=== PATIENT | female | born 1955 | race Caucasian/White ===

== ENCOUNTER → 2017-02-16 | Outpatient (CLI) | payer OTHER ==
--- NOTE | 2017-02-17 08:48 | KCIC ---
PROCEDURE MR of the left knee HISTORY Left knee pain. Tenderness and swelling since January 21. COMPARISON None TECHNIQUE Routine multiplanar sequences are obtained. FINDINGS No evidence of medial meniscal tear. Mild blunting of the free margin of the lateral meniscus, with some internal signal, compatible with a tear. The anterior and the posterior cruciate ligaments are intact. Medial collateral ligament intact Iliotibial band, fibular collateral ligament, biceps femoris tendon and popliteus tendon are intact. Extensor mechanism is intact. Moderate chondromalacia of the patella with multiple fissures. At least mild chondromalacia at the medial and lateral compartments. Acute bone marrow edema at the lateral aspect of the lateral femoral condyle may represent a bone marrow contusion. No aggressive bone destruction. Soft tissue edema within the infrapatellar fat and along the anterior knee. There is a shelf-like medial patellar plica which covers the lateral femoral trochlea. IMPRESSION 1. Lateral meniscal tear. 2. Primary osteoarthritis. 3. Mild bone marrow edema or contusion at the lateral femoral condyle. 4. Prominent medial patellar plica. 5. Soft tissue inflammation or contusion along the anterior knee and in the infrapatellar fat. Electronically signed by: Saw Stanley MD (Feb 17, 2017 08:47:05)
== END | disposition home or self-care (01) ==
LOC: KCIC MRI 16:27
PROVIDERS: ATTEND Physician Assistant Surgical
DX: M17.12 Unilateral primary osteoarthritis, left knee (principal)
CPT/HCPCS: 73721

== ENCOUNTER → 2019-04-01 | Outpatient (CLI) | payer OTHER ==
--- NOTE | 2019-04-01 12:25 | RAD ---
EXAM: 1. MRI right knee without contrast. 2. Bone length study. HISTORY: Right knee pain. Preoperative planning for arthroplasty. TECHNIQUE: MRI of the right knee was performed without intravenous contrast using a limited preoperative protocol. Plane radiographs of the right lower extremity were obtained for length measurements. FINDINGS: The anterior cruciate ligament and posterior cruciate ligament are intact. The medial collateral ligament and lateral collateral ligament complex are grossly intact on limited images. The patellar retinacula and extensor mechanism appear intact. The lateral meniscus is mostly absent consistent with prior meniscectomy. There is no clear medial meniscal tear. Cartilage loss reaches full-thickness along the posterior aspect of the lateral tibial plateau and the posterior aspect of the lateral femoral condyle. Cartilage loss is near full-thickness focally along the weightbearing portion of the medial femoral condyle in a relatively focal ulcer. It is mild and partial thickness along the patellofemoral compartment. There are moderate osteophytes medially and laterally. There is a small to moderate joint effusion. A small amount of fluid extends into the gastrocnemius-semimembranosus bursa. Limited images of the right hip and right ankle reveal no abnormality. Markers were placed for length measurements. IMPRESSION: 1. Moderate lateral compartment predominant tricompartmental osteoarthritis. Cartilage loss reaches full-thickness posteriorly in the lateral compartment and is partial-thickness elsewhere as above. Electronically signed by: Leilani Dickerson MD (04/01/2019 12:22 PM) [facility]
== END | disposition home or self-care (01) ==
LOC: RAD 10:15
PROVIDERS: ATTEND Orthopaedic Surgery
DX: Z01.818 Encounter for other preprocedural examination (principal); M17.11 Unilateral primary osteoarthritis, right knee; M25.761 Osteophyte, right knee; M25.462 Effusion, left knee; G89.29 Other chronic pain
CPT/HCPCS: 73721; 77073

== ENCOUNTER → 2019-05-06 | Outpatient (CLI) | payer OTHER ==
[~2019-05-06] MED LIST: ACET500T68 PO; ASPI1TAB88 PO; FERR325T14 PO; PANT20TA2 PO; TRAM50TA PO
[2019-05-06 09:58] LABS: ALBUMIN 3.6 g/dL (3.4-5.0); CALCIUM 9.1 mg/dL (8.5-10.1); CREATININE 0.9 mg/dL (0.6-1.0); GFR 63.2; POTASSIUM 4.2 mmol/L (3.5-5.1)
[2019-05-06 10:08] LABS: BASO % 1 % (0-3); EOS # 0.1 x10^3/uL (0.0-0.7); EOS % 2 % (0-3); HEMATOCRIT 41.4 % (36.0-47.0); HEMOGLOBIN 13.7 g/dL (12.0-15.5); LYMPH # 1.2 x10^3/uL (1.0-4.8); LYMPH % 30 % (24-48); MEAN CORPUSCULAR HEMOGLOBIN 29 pg (25-35); MEAN CORPUSCULAR HGB CONC 33 g/dL (31-37); MEAN CORPUSCULAR VOLUME 88 fL (79-100); MONO # 0.4 x10^3/uL (0.0-1.1); MONO % 10 % (0-9); NEUT # 2.2 x10^3uL (1.8-7.7); NEUT % 57 % (31-73); PLATELET COUNT 248 x10^3/uL (140-400); RED BLOOD COUNT 4.69 x10^6/uL (3.50-5.40); RED CELL DISTRIBUTION WIDTH 14.6 % (11.5-14.5); WHITE BLOOD COUNT 3.9 x10^3/uL (4.0-11.0)
[2019-05-06 10:16] LABS: BILIRUBIN,URINE NEGATIVE (NEG); CLARITY,URINE CLEAR; COLOR,URINE YELLOW; NITRITE,URINE NEGATIVE (NEG); PROTEIN,URINE NEGATIVE (NEG-TRACE); UROBILINOGEN,URINE 0.2 mg/dL (0.2 mg/dL)
[2019-05-06 10:19] LABS: PROTHROMBIN TIME PATIENT 12.6 SEC (11.7-14.0)
[2019-05-06 10:29] LABS: BACTERIA,URINE 0 /HPF (0-FEW); RBC,URINE 0 /HPF (0-2); WBC,URINE OCC /HPF (0-4)
--- NOTE | 2019-05-06 13:37 | EKG ---
[facility] [address] [place] [address] Test Date: 2019-05-06 Test Time: 13:29:29 Pat Name: FARHAT FOX Department: Room: Gender: F Assistant Producer: : [id number] Requested By: SHO DAVALOS Order Number: [id number] Reading MD: Juan Francisco Alegria MD Measurements Intervals [place] Rate: 67 P: 33 IA: 160 QRS: 28 QRSD: 84 T: 31 QT: 412 QTc: 438 Interpretive Statements SINUS RHYTHM NON-SPECIFIC ST/T CHANGES Electronically Signed On 05-09-2019 12:55:52 CDT by Juan Francisco Alegria MD
--- NOTE | 2019-05-06 16:50 | RAD ---
Chest radiograph 05/06/2019 1:59 PM INDICATION: Hyperlipidemia COMPARISON: None available TECHNIQUE: Frontal and lateral views of the chest are provided. FINDINGS: The cardiomediastinal silhouette is within normal limits. There are no pleural effusions. There is no pulmonary vascular congestion. There is no pneumothorax. The lungs are clear. No significant osseous abnormality is identified. IMPRESSION: No acute cardiopulmonary process. Electronically signed by: Ellie Tabares MD (05/06/2019 4:47 PM) [id number]
== END | disposition home or self-care (01) ==
LOC: SURGPAT 13:17
PROVIDERS: ATTEND Orthopaedic Surgery
DX: Z01.818 Encounter for other preprocedural examination (principal); M17.11 Unilateral primary osteoarthritis, right knee; E78.5 Hyperlipidemia, unspecified
CPT/HCPCS: 36415; 71046; 80048; 81001; 82040; 82306; 85025; 85610; 85651; 85730; 87641; 93005